=== PATIENT | female | born 1990 | race Caucasian/White ===

== ENCOUNTER 2017-03-09 09:42 | Day surgery (SDC) | payer BC ==
[2017-03-09] MEDS ORDERED: LIDOCAINE 2% MDV (20MG/ML) 20ML VIAL IV ONE (16:10)
[2017-03-09] MEDS ORDERED: PROPOFOL 10 MG/ML VIAL IV ONE (16:10)
[2017-03-09] MEDS ORDERED: ONDANSETRON HCL IV 4 MG/2 ML VIAL IVP ONE (16:10)
[2017-03-09] MEDS ORDERED: FENTANYL PF 100MCG/2ML VIAL IV ONE (16:10)
--- NOTE | 2017-03-15 10:20 | Operative Note ---
DATE OF SURGERY: 03/09/2017 PREOPERATIVE DIAGNOSIS: Recurrent epigastric pain of unclear origin. POSTOPERATIVE DIAGNOSIS: Normal EGD. Rule out occult celiac. Rule out occult H pylori. OPERATION: ESOPHAGOGASTRODUODENOSCOPY with biopsy. PROCEDURE: After informed consent was obtained, the patient and her mother, she was placed in the left lateral decubitus position in the endoscopy suite. She was sedated and monitored by the Department of Anesthesia. Once sedated, a well-lubricated EXM715 gastroscope was placed in the posterior oropharynx and under direct visualization passed to the proximal esophagus. The endoscope was advanced to the proximal, mid and distal esophagus. The esophagus and GE junction were unremarkable. The gastric body and antrum were unremarkable as well. The pylorus, duodenal bulb and sweep were unremarkable. Random biopsies were obtained from the bulb and sweep to rule out occult celiac sprue. Random antrum and distal body biopsies were obtained to rule out H pylori. J-turn views of the proximal stomach were unrevealing. The endoscope was then straightened and retracted from the patient with no new findings or abnormalities noted. RECOMMENDATIONS: The patient should resume her medications and diet. I will provider her with a prescription for Levsin SL for possible irritable bowel syndrome. She is to use MiraLAX for her chronic constipation. When she returns from [place], a colorectal surgical evaluation was suggested to evaluate her hemorrhoids. As always, thank you for allowing me to participate in the health care of your patients. NIRAV
== END 2017-03-09 12:10 | disposition home or self-care (01) ==
LOC: HOP 09:42
PROVIDERS: ATTEND Internal Medicine Gastroenterology
DX: R10.13 Epigastric pain (principal)
CPT/HCPCS: 43235; 00740; 81025; J2405; J3010